=== PATIENT | female | born 1990 | race Caucasian/White ===

== ENCOUNTER 2020-12-19 11:47 | Outpatient (REF) | payer OTHER, SELFPAY ==
[2020-12-19 12:07] LABS: COVID-19 Test Negative (Negative); IDNOW Serial# 55D5AD1C
== END 2020-12-19 11:48 | disposition home or self-care (01) ==
LOC: HO.LAB 11:47
PROVIDERS: Visit Provider Internal Medicine
DX: Z20.822 Contact with and (suspected) exposure to COVID-19 (principal)
CPT/HCPCS: 36415; 87635; C9803

== ENCOUNTER 2021-02-13 15:41 | Outpatient (REF) | payer OTHER, SELFPAY | END 2021-02-13 15:42 | disposition home or self-care (01) | LOC: HO.LAB 15:41 | PROVIDERS: Visit Provider Internal Medicine | DX: Z20.822 Contact with and (suspected) exposure to COVID-19 (principal) | CPT/HCPCS: C9803; U0003; U0005 ==